=== PATIENT | female | born 1955 | race Caucasian/White ===

== ENCOUNTER 2018-04-12 11:19 | Day surgery (SDC) | payer MEDICAID ==
[2018-04-07 15:39] LABS: BASOPHILS % (AUTO) 0.4 % (0-1); EOSINOPHILS # (AUTO) 0.2 X10'3 (0-0.9); EOSINOPHILS % (AUTO) 2.9 % (0-6); LYMPHOCYTES # (AUTO) 1.6 X10'3 (1.1-4.8); LYMPHOCYTES % (AUTO) 23.7 % (21-51); MEAN CORPUSCULAR HEMOGLOBIN 30.4 PG (27.0-31.0); MEAN CORPUSCULAR HGB CONC 34.2 % (33.0-36.5); MEAN PLATELET VOLUME 8.6 FL (7.4-10.4); MONOCYTES # (AUTO) 0.6 X10'3 (0-0.9); MONOCYTES % (AUTO) 8.3 % (2-12); NEUTROPHILS # (AUTO) 4.4 X10'3 (1.8-7.7); NEUTROPHILS % (AUTO) 64.7 % (42-75); PLATELET COUNT 215 X10'3 (140-440); RED BLOOD COUNT 4.27 X10'6 (4.20-5.60); RED CELL DISTRIBUTION WIDTH 12.9 % (11.5-14.5); WHITE BLOOD COUNT 6.8 X10'3 (4.5-11.0)
[2018-04-07 15:48] LABS: ALBUMIN 3.5 G/DL (3.4-5.0); ANION GAP 7 (8-16); BLOOD UREA NITROGEN 15 MG/DL (7-18); BUN/CREATININE RATIO 22.7 (6.6-38.0); CALCIUM 9.3 MG/DL (8.5-10.1); CHLORIDE 107 MMOL/L (99-107); CREATININE 0.66 MG/DL (0.40-0.90); GLUCOSE 101 MG/DL (70-104); SODIUM 143 MMOL/L (135-145); TOTAL CARBON DIOXIDE 29.2 MMOL/L (24-32); eGFR > 90 ML/MIN
[2018-04-07 15:49] LABS: PARTIAL THROMBOPLASTIN TIME 25 SECONDS (22-32); PROTHROMBIN TIME 10.3 SECONDS (9.0-12.0)
[2018-04-12] VITALS (10 sets, daily range): BP systolic 115–129; BP diastolic 48–68
[~2018-04-12] VITALS: Ht 160 cm; Wt 82.1 kg
[~2018-04-12 11:19] MED LIST: CYCL-1 PO; DOXY-8 PO; IBUP-1984 PO; IBUP-812 PO
[2018-04-12] MEDS ORDERED: diphenhydrAMINE 25mg capsule PO PRN (12:10)
[2018-04-12] MEDS ORDERED: LORazepam 0.5 MG tablet PO PRN (12:10)
[2018-04-12] MEDS ORDERED: normal saline 1000ml 1,000 ML IV SCH (12:10)
[2018-04-12] MEDS ORDERED: PARO30TA73 PO (12:14)
[2018-04-12] MEDS ORDERED: METO-395 PO (12:14)
[2018-04-12] MEDS ORDERED: ASPI-1265 PO (12:14)
[2018-04-12] MEDS ORDERED: OMEP20CA10 PO (12:14)
[2018-04-12] MEDS ORDERED: ATOR40TA71 PO (12:14)
[2018-04-12] MEDS ORDERED: TRAM50TA2 PO (12:14)
[2018-04-12] MEDS ORDERED: BUPR300T53 PO (12:14)
[2018-04-12] MEDS ORDERED: MAGN500C16 PO (12:14)
[2018-04-12] MEDS ORDERED: heparin 1,000 UNITS/NS 500ml 500 ML ONE ×2 (14:58)
[2018-04-12] MEDS ORDERED: LIDOcaine 1% w/EPI 1:100,000 30ml vial (MDV) ONE (14:58)
[2018-04-12] MEDS ORDERED: iohexol 350MG/ML 100ml bottle IV ONE (14:58)
[2018-04-12] MEDS ORDERED: midazolam 2 mg/2 ml injection ONE (15:11)
== END 2018-04-12 20:05 | disposition home or self-care (01) ==
LOC: SSTAY O 11:19
PROVIDERS: ATTEND Internal Medicine Interventional Cardiology
DX: I35.0 Nonrheumatic aortic (valve) stenosis (principal); I10 Essential (primary) hypertension; E78.5 Hyperlipidemia, unspecified; F32.9 Major depressive disorder, single episode, unspecified; F41.9 Anxiety disorder, unspecified; Z87.891 Personal history of nicotine dependence; Z88.6 Allergy status to analgesic agent; Z90.710 Acquired absence of both cervix and uterus; Z79.891 Long term (current) use of opiate analgesic; Z88.5 Allergy status to narcotic agent; Z88.8 Allergy status to other drugs, medicaments and biological substances; Z79.82 Long term (current) use of aspirin; Z90.89 Acquired absence of other organs; Z72.89 Other problems related to lifestyle; Z79.899 Other long term (current) drug therapy; Z98.890 Other specified postprocedural states
CPT/HCPCS: 36415; 80048; 85025; 85610; 85730; 93005; 93459; 99152; A6257; C1760; C1769; J1644; J2250; J3490; J7030; Q0163; Q9967; 99153; A4620

== ENCOUNTER 2020-09-18 15:52 | Emergency (ER) | payer MEDICARE ==
[~2020-09-18] VITALS: Ht 160 cm; Wt 88.0 kg
[~2020-09-18 15:52] MED LIST changes: +ASPI-1265 PO; +ATOR40TA71 PO; +BUPR300T53 PO; -CYCL-1 PO; -DOXY-8 PO; -IBUP-1984 PO; -IBUP-812 PO; +MAGN500C16 PO; +METO-395 PO; +OMEP20CA15 PO; +PARO30TA73 PO; +TRAM50TA2 PO
[2020-09-18 16:49] LABS: CLARITY,URINE CLEAR (Clear); COLOR,URINE YELLOW (Yellow); GLUCOSE, URINE NEGATIVE (Neg); KETONES,URINE NEGATIVE (Neg); LEUKOCYTE ESTERASE ,URINE NEGATIVE (Neg); NITRITES, URINE NEGATIVE (Neg); OCCULT BLOOD,URINE NEGATIVE (Neg); PH,URINE 7.5 (4.8-8.0); PROTEIN,URINE NEGATIVE (Neg)
[2020-09-18 16:51] LABS: BASOPHILS % (AUTO) 0.6 % (0-1); EOSINOPHILS # (AUTO) 0.2 X10'3 (0-0.9); EOSINOPHILS % (AUTO) 3.6 % (0-6); HEMATOCRIT 34.2 % (35.0-45.0); HEMOGLOBIN 11.5 g/dl (12.0-16.0); LYMPHOCYTES # (AUTO) 1.6 X10'3 (1.1-4.8); LYMPHOCYTES % (AUTO) 23.5 % (21-51); MEAN CORPUSCULAR HEMOGLOBIN 30.7 PG (27.0-31.0); MEAN CORPUSCULAR HGB CONC 33.5 g/dL (33.0-36.5); MEAN CORPUSCULAR VOLUME 91.7 FL (78-98); MEAN PLATELET VOLUME 9.5 FL (7.4-10.4); MONOCYTES # (AUTO) 0.6 X10'3 (0-0.9); MONOCYTES % (AUTO) 8.7 % (2-12); NEUTROPHILS # (AUTO) 4.4 X10'3 (1.8-7.7); NEUTROPHILS % (AUTO) 63.6 % (42-75); PLATELET COUNT 223 X10'3 (140-440); RED BLOOD COUNT 3.73 X10'6 (4.20-5.60); RED CELL DISTRIBUTION WIDTH 13.5 % (11.5-14.5); WHITE BLOOD COUNT 6.9 X10'3 (4.5-11.0)
[2020-09-18 16:58] LABS: UA COLLECTION TYPE CLN CATCH MIDSTREAM
[2020-09-18 17:01] LABS: ALANINE AMINOTRANSFERASE 27 U/L (12-78); ALBUMIN 3.2 G/DL (3.4-5.0); ALBUMIN/GLOBULIN RATIO 0.9 (1.1-1.5); ALKALINE PHOSPHATASE 175 IU/L (46-116); ANION GAP 8 (8-16); ASPARTATE AMINO TRANSFERASE 24 U/L (10-37); BILIRUBIN,TOTAL 0.3 MG/DL (0.1-1.0); BLOOD UREA NITROGEN 10 MG/DL (7-18); BUN/CREATININE RATIO 11.8 (6.6-38.0); CALCIUM 8.8 MG/DL (8.5-10.1); CHLORIDE 102 MMOL/L (99-107); CREATININE 0.85 MG/DL (0.40-0.90); GLUCOSE 107 MG/DL (70-104); LIPASE 84 U/L (73-393); POTASSIUM 3.5 MMOL/L (3.5-5.1); SODIUM 138 MMOL/L (135-145); TOTAL CARBON DIOXIDE 28.2 MMOL/L (24-32); TOTAL PROTEIN 6.9 G/DL (6.4-8.2); eGFR 68 ML/MIN
[2020-09-18] MEDS ORDERED: TRAM50TA2 PO (18:54)
[2020-09-18] MEDS ORDERED: ONDA4TAB6 PO (18:54)
[2020-09-18] MEDS ORDERED: AMOX-422 PO (18:54)
[2020-09-18 19:51] VITALS: BP 132/48
== END 2020-09-18 19:56 | disposition home or self-care (01) ==
LOC: ER 15:53
DX: K57.32 Diverticulitis of large intestine without perforation or abscess without bleeding (principal); G89.29 Other chronic pain; Z79.82 Long term (current) use of aspirin; Z79.899 Other long term (current) drug therapy; Z88.5 Allergy status to narcotic agent
CPT/HCPCS: 36415; 74176; 80053; 81003; 83605; 83690; 85025; 99284

== ENCOUNTER 2023-09-01 10:36 | Emergency (ER) | payer MEDICARE, MEDICAID ==
[~2023-09-01] VITALS: Ht 160 cm; Wt 77.7 kg
[~2023-09-01 10:36] MED LIST changes: -MAGN500C16 PO; +MAGN500C4 PO; +ONDA4TAB6 PO; -PARO30TA73 PO; +PARO30TA97 PO
[2023-09-01 10:45] VITALS: BP 124/64; PULSE 72; RESP 20; TEMP 97; O2SAT 98
[2023-09-01 11:08] LABS: EOSINOPHILS # (AUTO) 0.1 X10'3 (0-0.9); MONOCYTES # (AUTO) 0.5 X10'3 (0-0.9); RED BLOOD COUNT 3.93 X10'6 (4.20-5.60); WHITE BLOOD COUNT 6.7 X10'3 (4.5-11.0)
[2023-09-01 11:11] LABS: BASOPHILS % (AUTO) 0.5 % (0-1); EOSINOPHILS % (AUTO) 1.9 % (0-6); HEMATOCRIT 35.3 % (35.0-45.0); HEMOGLOBIN 11.6 g/dl (12.0-16.0); LYMPHOCYTES # (AUTO) 1.2 X10'3 (1.1-4.8); LYMPHOCYTES % (AUTO) 18.4 % (21-51); MEAN CORPUSCULAR HEMOGLOBIN 29.6 PG (27.0-31.0); MEAN CORPUSCULAR VOLUME 89.8 FL (78-98); MEAN PLATELET VOLUME 9.4 FL (7.4-10.4); MONOCYTES % (AUTO) 6.9 % (2-12); NEUTROPHILS # (AUTO) 4.9 X10'3 (1.8-7.7); NEUTROPHILS % (AUTO) 72.3 % (42-75); PLATELET COUNT 205 X10'3 (140-440)
[2023-09-01 11:30] LABS: ALANINE AMINOTRANSFERASE 47 U/L (12-78); ALBUMIN 3.4 G/DL (3.4-5.0); ALKALINE PHOSPHATASE 159 IU/L (46-116); ANION GAP 7 (8-16); ASPARTATE AMINO TRANSFERASE 36 U/L (10-37); BILIRUBIN,TOTAL 0.5 MG/DL (0.1-1.0); BLOOD UREA NITROGEN 17 MG/DL (7-18); BUN/CREATININE RATIO 15.5 (10.0-20.0); CALCIUM 9.1 MG/DL (8.5-10.1); CHLORIDE 104 MMOL/L (99-107); GLUCOSE 155 MG/DL (70-104); POTASSIUM 3.8 MMOL/L (3.5-5.1); SODIUM 138 MMOL/L (135-145); TOTAL CARBON DIOXIDE 26.6 MMOL/L (24-32); TOTAL PROTEIN 6.9 G/DL (6.4-8.2); eCRCL 42 ML/MIN; eGFR 50 ML/MIN
[2023-09-01 11:38] LABS: PRO BRAIN NATRIURETIC PEPTIDE 10591 PG/ML (0-125)
== END 2023-09-01 21:06 | disposition left against medical advice (07) ==
LOC: ER 10:36
DX: R07.9 Chest pain, unspecified (principal); F32.A Depression, unspecified; G89.29 Other chronic pain; Z88.5 Allergy status to narcotic agent; Z88.8 Allergy status to other drugs, medicaments and biological substances; Z79.899 Other long term (current) drug therapy
CPT/HCPCS: 36415; 80053; 83880; 84484; 85025; 93005; 99284

== ENCOUNTER 2025-03-27 14:17 | Emergency (ER) | payer MEDICARE, MEDICAID ==
[~2025-03-27] VITALS: Ht 160 cm; Wt 85.0 kg
[2025-03-27 14:33] VITALS: TEMP 98.3
--- NOTE | 2025-03-27 15:46 | Physician Documentation ---
History of Present Illness ~ Chief Complaint: Leg Laceration Stated Complaint: LEG LACERATION Time Seen by MD: 14:59 [facility] Doctor[facility] This is a 69-year-old female with a known history of CHF, partially compliant with her Lasix, who came in for evaluation of laceration to the lower extremity. She tripped over a T post. Immediate onset of sharp nonradiating pain. No palliating or aggravating factors. Bleeding was controlled on scene. Denies any other injury. Tetanus witin 5 years: Yes (2019) Medication Reconciliation Allergies: Coded Allergies: codeine (Verified Allergy, Unknown, 09/25/17) hydrocodone (Verified Allergy, Unknown, 09/25/17) hydrocodone bit (Verified Allergy, Unknown, 09/25/17) meperidine (Unverified Allergy, Unknown, 04/12/18) Uncoded Allergies: VICODINE (Allergy, Intermediate, 03/09/13) Scheduled Aspirin (Aspirin), 1 TAB.CHEW PO DAILY, (Reported) Atorvastatin Calcium (Atorvastatin Calcium), 1 TAB PO DAILY, (Reported) Bupropion HCl (Wellbutrin Xl), 1 TAB PO DAILY, (Reported) Magnesium Oxide (Magnesium), PO DAILY, (Reported) Metoprolol Succinate (Metoprolol Succinate), 1 TAB PO DAILY, (Reported) Omeprazole (Omeprazole), 1 CAP PO DAILY, (Reported) Ondansetron Hcl (Zofran), 1 TAB PO Q6H Paroxetine HCl (Paxil), 1 TAB PO DAILY, (Reported) Tramadol HCl (Tramadol HCl), 1 TABLET PO Q6H, (Reported) Past Medical History Past Medical History: Chronic Pain, Depression Past Surgical History: noncontributory, hysterectomy, other Alcohol Use: None Drug Use: none Lives with: Spouse Lives In: Home Review of Systems ROS 10 point review of systems was performed and unless noted above in HPI is negative for acute process/complaint. Physical Exam Vital Signs: Temperature: 98.3, Source: Oral, Heart Rate: 83, Respiratory Rate: 16, BP: 140/70, Pulse Oximetry: 99, Weight: 85.000 Oxygen Flow Rate: 0 Physical Exam Physical examination: GENERAL: Awake, alert, oriented, GCS 15, no apparent distress, non-toxic appearing, answers questions, follows commands appropriately. HEENT: Atraumatic, normocephalic, pupils equal, extraocular muscles intact Active gross movements, sclerae anicteric, mucus membranes moist, no stridor. NECK: Midline, no JVD CARDIOVASCULAR: Good skin perfusion without evidence of pallor, mottling. PULMONARY: Nonlabored, symmetric chest rise, no audible wheezing, no accessory muscle use, no respiratory distress, speaking in full sentences. GASTROINTESTINAL: Not distended. NEUROLOGIC: Lucid with normal mental status. Normal facial symmetry. Moves all extremities symmetrically and with purpose. No truncal ataxia. Speech is fluid without evidence of dysarthria or aphasia, no focal deficits appreciated. EXTREMITIES: Acute deformities Skin: warm, dry PSYCHIATRIC: Normal affect, normal insight, normal concentration. Focused exam: [There is a jagged W shaped laceration to the left lower extremity. No active bleeding. Neurovascularly intact distally. To the length of laceration is 23 cm.] There is marked 2+ pitting edema. Procedures Laceration Repair : Anesthesia: Lidocaine w/ Epi Debrided: moderate Undermining: minimal Margins: revised Foreign Body: not identified Repaired: skin Wound Repaired With: sutures, francis Suture Size/Type: 3-0, ethilon Number of Superficial Sutures: 9 Layer Closure?: No Procedure Note Thirty-five francis. It is important to note that I was not able to close the laceration completely. I closed the larger portion of the W, totaling 18 cm. Smaller portion of the inner jagged edge was also closed with retention sutures with a francis. The 6 cm has margins that are far too wide to approximate, and attempt to lead to skin tears. This will have to heal by secondary intention. We will send patient to wound care. Progress Results/Orders Results/Orders Orders - DIANNE ROSE DO Wound Care Consult (03/27/25 15:41) Vital Signs 03/27/25 03/27/25 14:33 14:47 Temp 98.3 Pulse 84 83 Resp 16 16 B/P (MAP) 123/66 140/70 (93) Pulse Ox 99 99 O2 Flow Rate 0 Medical Decision Making Findings Facility Status: ED Holds, RME process The plan was discussed with the patient, who demonstrates clear understanding of the plan and is in agreement with the plan unless otherwise noted in the chart. All questions have been answered, all concerns were addressed unless otherwise documented. I was available throughout their ED stay for frequent reassessment and questions. Differential Diagnoses (considered and possible or likely): [Ground level fall, acute traumatic pain, unlikely laceration] ??Differential Diagnoses (considered and unlikely, not requiring evaluation currently): [] MDM Data Please see HPI for the following: Independent Historians and external Records Review. Historian: [Patient] Independent Historians: ?[EMS] Medication Management: [Reviewed medication list] Social History and determinants: [Reviewed] Please see the body of the note for the following: Any independent interpretations of ECG, imaging studies. All vitals signs/haemodynamics, ordered tests were independently reviewed and interpreted by myself. Nursing triage complaint and vitals reviewed, additional nursing notes were reviewed as available and I agree unless otherwise noted or documented in contradiction in the chart Vital Signs: Independently reviewed Labs: Independently interpreted Imaging: Independently interpreted Old Medical Records: Independently reviewed, see HPI for relevant summary and information Pulse Oximetry: [99%] interpreted as [normal on room air] by me [[employer]: [Regular Rate, Regular rhythm, no ectopy, NSR] reviewed and interpreted by me] Additionally notably showing: [Hemodynamically stable] Tests considered but not ordered include: [Hematologic workup and imaging has been considered but does not appear to be necessary given clinical nature of diagnosis] Social Determinants of Health Impact: Patient was evaluated in [facility], or [facility] [place] access to healthcare due to below par ratio of patient to medical providers. [] Comorbid Conditions Impacting Present Evaluation and Care/Treatment: [CHF] Management Discussions with other Healthcare Providers: [] Treatment and Disposition Medication Management (Given or considered): []. See EMR for details Consideration for Hospitalization/Escalation/Deescalation of Care: Admission for observation has been considered, [however the patient is able to tolerate p.o., their symptoms are controlled, they are able to rely on oral medications, and their chief complaint/diagnosis can be managed on outpatient basis.] ?ED Course:?[Not able to fully close laceration. Discussed further course of action. The margins of the wound are too far apart and the skin will tear due to its fragility saturation with 3rd spaced fluid. Patient will require referral to wound care. Referral was provided.] ?Shared decision making:?[Patient is hemodynamically stable for discharge home with follow with their primary care provider. [ ] Specific and cautious return precautions provided and discussed with full understanding. Any incidental findings were also discussed and follow up recommendations given. [] All questions answered. Patient/family were able to verbalize back return precautions. Patient/family agree to plan. Copies of imaging and laboratory studies were provided.] Code status:?FULL Please see the full Electronic Medical Record for full details of nursing documentation, medications list, other records of complete past medical history and conditions, vital signs, laboratory studies, and any radiologic study interpretations by radiologists. Portions of this note were completed using [employer] dictation software and as a result there may exist minor errors in spell ing. I have reviewed elements of past family and social history and agree as included in note. Departure Disposition: HOME / SELF CARE / HOMELESS Impression: Primary Impression: Leg laceration Condition: Improved Discharge Instructions: How to Change Your Wound Dressing, Laceration Care, Adult, Wound Care, Adult Additional Instructions: You need to follow-up with the wound care as soon as possible. The laceration is not completely repaired. Take your Lasix to improve healing and takedown of the swelling in your lower extremity. Take antibiotics as prescribed. Referrals: WOUND CLNIC, [facility] Please follow-up with the wound care clinic for your partial closure of a leg laceration. Unfortunately, we were not able to approximate the edges due to significant edema. Prescriptions Clindamycin HCl (Clindamycin HCl CAPSULE) 150 Mg Capsule 3 CAP PO TID for 10 Days, #90 CAP Prov: DIANNE ROSE DO 03/27/25 Hydrocodone Bit/Acetaminophen 5/325 MG ([place] 5/325 MG) 5 Mg/325 Mg Tablet 1 TAB PO Q6H PRN for pain, #14 TAB Prov: DIANNE ROSE DO 03/27/25 Education Educated: Patient Educated regarding: diagnosis, treatment, prognosis, need for follow up Signature Scribe Signature: No scribe Attestation: This note accurately reflects clinical decisions, work performed by myself, DO MILTON Portillo NICHOLAS M DO March 27, 2025 15:46
[2025-03-27] MEDS ORDERED: HYDR-3965 PO (15:58)
[2025-03-27] MEDS ORDERED: CLIN-214 PO (15:58)
[2025-03-27] MEDS: HYDROcodone/acetaminophen 5mg/325mg tablet PO ONE (16:32)
[2025-03-27] MEDS: TETanus/Pertussis (Acell)/Diphther VAC/PF (Tdap-Adult) 0.5ml syringe IMVAC ONE (16:44)
[2025-03-27] MEDS: acetaminophen 325mg tablet PO ONE (16:45)
[2025-03-27] MEDS: ketorolac trometh 15mg/ml vial 15 MG/ML ML IV ONE (16:45)
[2025-03-27 17:25] VITALS: BP 154/89; PULSE 85; RESP 16; O2SAT 98
== END 2025-03-27 17:38 | disposition home or self-care (01) ==
LOC: ER 14:17
DX: S81.812A Laceration without foreign body, left lower leg, initial encounter (principal); F32.A Depression, unspecified; I50.9 Heart failure, unspecified; Z88.5 Allergy status to narcotic agent; Z88.8 Allergy status to other drugs, medicaments and biological substances; Z90.710 Acquired absence of both cervix and uterus; X58.XXXA Exposure to other specified factors, initial encounter; Y93.89 Activity, other specified; Y92.89 Other specified places as the place of occurrence of the external cause; Y99.8 Other external cause status
CPT/HCPCS: 12006; 90715; 96374; 99284; A6223; A6258; A6402; A6446; A6449; G0008; J1885; J7030; Z7610; 90471

== ENCOUNTER 2025-04-16 10:36 | Emergency (ER) | payer MEDICARE, OTHER, MEDICAID ==
[~2025-04-16] VITALS: Ht 160 cm; Wt 81.4 kg
[~2025-04-16 10:36] MED LIST changes: +CLIN-214 PO; +HYDR-3965 PO
[2025-04-16 11:01] VITALS: BP 123/62; PULSE 72; RESP 18; O2SAT 100
--- NOTE | 2025-04-16 13:20 | Physician Documentation ---
History of Present Illness ~ Chief Complaint: Mechanical Fall Stated Complaint: FALL Time Seen by MD: 13:08 Primary Medical Doctor: jia redd Tetanus within 5 Years?: Yes (2019) Medication Reconciliation Allergies: Coded Allergies: codeine (Verified Allergy, Unknown, 09/25/17) hydrocodone (Verified Allergy, Unknown, 09/25/17) hydrocodone bit (Verified Allergy, Unknown, 09/25/17) meperidine (Unverified Allergy, Unknown, 04/12/18) Uncoded Allergies: VICODINE (Allergy, Intermediate, 03/09/13) Scheduled Aspirin (Aspirin), 1 TAB.CHEW PO DAILY, (Reported) Atorvastatin Calcium (Atorvastatin Calcium), 1 TAB PO DAILY, (Reported) Bupropion HCl (Wellbutrin Xl), 1 TAB PO DAILY, (Reported) Clindamycin HCl (Clindamycin HCl CAPSULE), 3 CAP PO TID Magnesium Oxide (Magnesium), PO DAILY, (Reported) Metoprolol Succinate (Metoprolol Succinate), 1 TAB PO DAILY, (Reported) Omeprazole (Omeprazole), 1 CAP PO DAILY, (Reported) Ondansetron Hcl (Zofran), 1 TAB PO Q6H Paroxetine HCl (Paxil), 1 TAB PO DAILY, (Reported) Tramadol HCl (Tramadol HCl), 1 TABLET PO Q6H, (Reported) Scheduled PRN Hydrocodone Bit/Acetaminophen 5/325 MG ([place] 5/325 MG), 1 TAB PO Q6H PRN for pain Past Medical History Past Medical History: Chronic Pain, Depression Past Surgical History: noncontributory, hysterectomy, other Alcohol Use: None Drug Use: none Lives with: Spouse Lives In: Home Physical Exam Vital Signs: Temperature: 97.8, Source: Temporal, Heart Rate: 72, Respiratory Rate: 18, BP: 123/62, Pulse Oximetry: 100, Weight: 81.360 Progress Results/Orders Results/Orders Orders - JOSÉ LUIS NOLASCO NP, Unilat (04/16/25 13:06) Vital Signs 04/16/25 11:01 Temp 97.8 Pulse 72 Resp 18 B/P (MAP) 123/62 Pulse Ox 100 Departure Disposition: HOME / SELF CARE / HOMELESS Impression: Primary Impression: Fall Additional Impression: Rib pain Condition: Stable Discharge Instructions: Fall Prevention in the Home, Adult, [id number] Additional Instructions: Once your primary care provider for further evaluation. Call if there is a notable rib fracture Referrals: NO PRIMARY CARE PROVIDER (PCP) Signature Scribe Signature: g Attestation: The note accurately reflects work and decisions made by me.José Luis Sharma NP 04/16/25 13:20 JOSÉ LUIS NOLASCO NP Apr 16, 2025 13:20
[2025-04-16 13:31] VITALS: TEMP 97.8
--- NOTE | 2025-04-16 14:00 | RADIOLOGY REPORT ---
[facility]: DI RIBS,UNILAT INDICATION: FALL LEFT RIB PAIN COMPARISON: None TECHNIQUE: Frontal view of the chest and 3 views of the left ribs history FINDINGS: No focal consolidation, pleural effusion or significant pneumothorax. Normal cardiomediastinal silhou ette. No displaced left rib fracture. Right pacemaker IMPRESSION: No rib fracture.
== END 2025-04-16 13:33 | disposition home or self-care (01) ==
LOC: ER 10:36
DX: R07.81 Pleurodynia (principal); F32.A Depression, unspecified; Z88.5 Allergy status to narcotic agent; Z88.8 Allergy status to other drugs, medicaments and biological substances; Z90.710 Acquired absence of both cervix and uterus; W19.XXXA Unspecified fall, initial encounter; Y93.89 Activity, other specified; Y92.89 Other specified places as the place of occurrence of the external cause; Y99.8 Other external cause status
CPT/HCPCS: 71100; 99283